=== PATIENT | female | born 1970 | race Caucasian/White ===

== ENCOUNTER 2017-01-05 13:14 | Emergency (ER) | payer SELFPAY ==
[2017-01-05 13:55] LABS: Basophils % (Auto) 0.6 % (0.0-1.8); Eosinophils % (Auto) 4.3 % (0.0-4.3); Hematocrit 39.1 % (30.3-42.9); Hemoglobin 12.8 gm/dl (10.1-14.3); Mean Corpuscular HGB Conc 33 % (30-34); Mean Corpuscular Hemoglobin 27 pg (28-32); Mean Corpuscular Volume 83 fl (79-97); Platelet Count 262 K/mm3 (140-440); Red Blood Count 4.69 M/mm3 (3.65-5.03); Red Cell Distribution Width 14.3 % (13.2-15.2); White Blood Count 5.8 K/mm3 (4.5-11.0)
[2017-01-05 14:33] LABS: Anion Gap 16 mmol/L; Blood Urea Nitrogen 10 mg/dL (7-17); Calcium 8.2 mg/dL (8.4-10.2); Carbon Dioxide 22 mmol/L (22-30); Chloride 103.1 mmol/L (98-107); Glucose 151 mg/dL (65-100); Potassium 3.6 mmol/L (3.6-5.0); Sodium 137 mmol/L (137-145)
--- NOTE | 2017-01-05 14:40 | XRay Report ---
Chest 2 views. History: Shortness of breath. Findings: The heart and pulmonary vessels are normal. The lungs are clear. There is no pleural fluid. Impression: Negative study.
[2017-01-05] MEDS ORDERED: ZITHROMAX PO ONE (16:11)
[2017-01-05] MEDS ORDERED: MOTRIN PO ONE (16:11)
--- NOTE | 2017-01-05 16:16 | Emergency Department Report ---
- General Chief Complaint: Upper Respiratory Infection Stated Complaint: FEVER/COUGH/PNEUMONIA/CHEST PAIN Time Seen by Provider: 01/05/17 15:53 Source: patient, family Mode of arrival: Ambulatory Limitations: Language Barrier - History of Present Illness Initial Comments: 46-year-old female past medical history none sent from primary care clinic to " rule out pneumonia". Patient states she has had 3 days of fever chills and coughing with body aches. Patient is awake alert and oriented 3 not in acute distress, states she feels some body aches. States she had slight discomfort when taking a deep breath. Denies any recent travel no recent surgeries no history of DVT or PE. Patient denies being a smoker. Patient speaking in full sentences no audible wheezing or stridor. MD Complaint: fever, cough Onset/Timin -: days(s) Severity: moderate Quality: burning Improves With: cough suppressant Associated Symptoms: fever, cough - Related Data Previous Rx's Medication Instructions Recorded Last Taken Type Azithromycin [Zithromax TAB] 250 mg PO QDAY #4 tablet 01/05/17 Unknown Rx Naproxen [Naprosyn TAB] 500 mg PO BID PRN #30 tablet 01/05/17 Unknown Rx guaiFENesin DM [Robitussin Dm] 10 ml PO Q6HR PRN #1 bottle 01/05/17 Unknown Rx Allergies Allergy/AdvReac Type Severity Reaction Status Date / Time No Known Allergies Allergy Unverified 01/05/17 13:38 ED Review of Systems ROS: Stated complaint: FEVER/COUGH/PNEUMONIA/CHEST PAIN Other details as noted in HPI Constitutional: denies: chills, fever Eyes: denies: eye pain, eye discharge, vision change ENT: denies: ear pain, throat pain Respiratory: cough. denies: shortness of breath, wheezing Cardiovascular: denies: chest pain, palpitations Endocrine: no symptoms reported Gastrointestinal: denies: abdominal pain, nausea, diarrhea Genitourinary: denies: urgency, dysuria, discharge Musculoskeletal: denies: back pain, joint swelling, arthralgia Skin: denies: rash, lesions Neurological: denies: headache, weakness, paresthesias Psychiatric: denies: anxiety, depression Hematological/Lymphatic: denies: easy bleeding, easy bruising ED Past Medical Hx - Past Medical History Previous Medical History?: No - Surgical History Additional Surgical History: - Social History Smoking Status: Never Smoker Substance Use Type: None - Medications Home Medications: Home Medications Medication Instructions Recorded Confirmed Last Taken Type Azithromycin [Zithromax TAB] 250 mg PO QDAY #4 tablet 01/05/17 Unknown Rx Naproxen [Naprosyn TAB] 500 mg PO BID PRN #30 tablet 01/05/17 Unknown Rx guaiFENesin DM [Robitussin Dm] 10 ml PO Q6HR PRN #1 bottle 01/05/17 Unknown Rx ED Physical Exam - General Limitations: Language Barrier General appearance: alert, in no apparent distress - Head Head exam: Present: atraumatic, normocephalic - Eye Eye exam: Present: normal appearance, PERRL, EOMI - ENT ENT exam: Present: mucous membranes moist - Neck Neck exam: Present: normal inspection - Respiratory Respiratory exam: Present: normal lung sounds bilaterally. Absent: respiratory distress - Cardiovascular Cardiovascular Exam: Present: regular rate, normal rhythm. Absent: systolic murmur, diastolic murmur, rubs, gallop - GI/Abdominal GI/Abdominal exam: Present: soft, normal bowel sounds - Extremities Exam Extremities exam: Present: normal inspection - Back Exam Back exam: Present: normal inspection - Neurological Exam Neurological exam: Present: alert, oriented X3 - Psychiatric Psychiatric exam: Present: normal affect, normal mood - Skin Skin exam: Present: warm, dry, intact, normal color. Absent: rash ED Course Vital Signs 01/05/17 01/05/17 01/05/17 13:28 15:33 16:22 Temperature 98.3 F 98.8 F Pulse Rate 124 H 84 Respiratory 20 18 18 Rate Blood Pressure 128/91 Blood Pressure 136/79 [Right] O2 Sat by Pulse 96 97 Oximetry ED Medical Decision Making - Lab Data Result diagrams: 01/05/17 13:41 01/05/17 13:41 - Medical Decision Making A/P: Acute bronchitis 1- chest x-ray within normal limits no pneumonia 2- troponin negative, BMP normal, d-dimer negative, Wells score for PE 0. EKG sinus tachy, pt no longer tachycardic on vital signs 3- case discussed with Dr. Judge 4- motrin prn, andree lowe 5- HEART score 0 Critical care attestation.: If time is entered above; I have spent that time in minutes in the direct care of this critically ill patient, excluding procedure time. ED Disposition Clinical Impression: Acute bronchitis Qualifiers: Bronchitis organism: unspecified organism Qualified Code(s): J20.9 - Acute bronchitis, unspecified Disposition: DISCHARGED TO HOME OR SELFCARE Is pt being admited?: No Does the pt Need Aspirin: No Condition: Stable Instructions: Acute Bronchitis (ED) Prescriptions: Azithromycin [Zithromax TAB] 250 mg PO QDAY #4 tablet guaiFENesin DM [Robitussin Dm] 10 ml PO Q6HR PRN #1 bottle PRN Reason: Cough Naproxen [Naprosyn TAB] 500 mg PO BID PRN #30 tablet PRN Reason: Cough Referrals: [facility] [Provider Group] - 3-5 Days [facility] [Outside] - 3-5 Days ANTHONY VALENCIA MD [Staff Physician] - 3-5 Days Forms: Accompanied Note, Work/School Release Form(ED) Time of Disposition: 18:40
[2017-01-05 16:52] LABS: Creatine Kinase 53 units/L (30-135)
[2017-01-05 18:17] VITALS: BP 136/81
== END 2017-01-05 18:55 | disposition home or self-care (01) ==
LOC: ED 13:14
DX: J20.9 Acute bronchitis, unspecified (principal)
CPT/HCPCS: 36415; 71020; 80048; 82550; 84484; 85025; 85379; 87040; 87400; 93005; 93010; 99284

== ENCOUNTER 2017-07-14 23:02 | Emergency (ER) | payer SELFPAY ==
[2017-07-15 00:09] LABS: Calcium 8.5 mg/dL (8.4-10.2); Chloride 101.2 mmol/L (98-107); Potassium 4.1 mmol/L (3.6-5.0)
[2017-07-15 00:56] LABS: Basophils % (Auto) 0.3 % (0.0-1.8); Eosinophils % (Auto) 1.3 % (0.0-4.3); Hematocrit 37.4 % (30.3-42.9); Mean Corpuscular HGB Conc 32 % (30-34); Mean Corpuscular Hemoglobin 27 pg (28-32); Mean Corpuscular Volume 85 fl (79-97); Platelet Count 267 K/mm3 (140-440); Red Blood Count 4.43 M/mm3 (3.65-5.03); Red Cell Distribution Width 13.6 % (13.2-15.2); White Blood Count 11.4 K/mm3 (4.5-11.0)
[2017-07-15 01:25] LABS: Bacteria,Urine 1+ /HPF (Negative); Mucus,Urine FEW /HPF
[2017-07-15 01:35] LABS: Bilirubin,Urine NEG (Negative); Blood,Urine LG (Negative); Ketones,Urine NEG (Negative); Leukocyte Esterase,Urine NEG (Negative); Nitrite,Urine NEG (Negative); Protein,Urine <15 mg/dL mg/dL (Negative); RBC,Urine > 182.0 /HPF (0.0-6.0); Urobilinogen,Urine < 2.0 mg/dL (<2.0)
[2017-07-15 06:44] VITALS: BP 122/73
[2017-07-15] MEDS ORDERED: NACL 0.9% 1000 ML 1,000 ML IV ONE (10:48)
[2017-07-15] MEDS ORDERED: TORADOL IV ONE (10:48)
--- NOTE | 2017-07-15 11:44 | Ultrasound Report ---
Renal sonogram: History: Hematuria, right flank pain. Findings: The right kidney 12.9 x 5.2 x 5.1 cm. Cortical thickness is 1.4 cm. Left kidney 11.7 x 5.7 x 5.2 cm the cortical thickness is 1.5 cm. There is mild dilatation noted of the intrarenal collecting system of right and left kidney which persists in postvoid images. Impression: Mild bilateral hydronephrosis.
[2017-07-15] MEDS ORDERED: ROCEPHIN/NS 1 GM/50 ML 1 GM/50 ML BAG IV ONE (12:00)
--- NOTE | 2017-07-15 15:08 | Emergency Department Report ---
ED General Adult HPI - General Chief complaint: Abdominal Pain Stated complaint: R SIDE BACK PAIN Time Seen by Provider: 07/15/17 10:46 Source: patient Mode of arrival: Ambulatory Limitations: No Limitations - History of Present Illness Initial comments: Patient complains of bilateral flank pain for the past several days. She is unaware of any problems urinating. She denies fever or chills. She has had some nausea this morning. Patient states that she believes she's had kidney stones before. She has not been on recent antibiotics for anything. She does not have a history of recurrent urinary tract infection. -: Gradual, days(s) Location: back Radiation: non-radiation Severity scale (0 -10): 3 Quality: aching Consistency: intermittent Improves with: none Worsens with: none Associated Symptoms: denies other symptoms, nausea/vomiting Treatments Prior to Arrival: none - Related Data Previous Rx's Medication Instructions Recorded Last Taken Type Azithromycin [Zithromax TAB] 250 mg PO QDAY #4 tablet 01/05/17 Unknown Rx Naproxen [Naprosyn TAB] 500 mg PO BID PRN #30 tablet 01/05/17 Unknown Rx guaiFENesin DM [Robitussin Dm] 10 ml PO Q6HR PRN #1 bottle 01/05/17 Unknown Rx Cefuroxime [Ceftin] 250 mg PO BID #20 tablet 07/15/17 Unknown Rx HYDROcodone/ACETAMINOPHEN [[place] 1 each PO Q6H PRN #7 tablet 07/15/17 Unknown Rx 5-325 Tablet] Allergies Allergy/AdvReac Type Severity Reaction Status Date / Time No Known Allergies Allergy Unverified 01/05/17 13:38 ED Review of Systems ROS: Stated complaint: R SIDE BACK PAIN Other details as noted in HPI Constitutional: denies: chills, fever Eyes: denies: eye pain, eye discharge, vision change ENT: denies: ear pain, throat pain Respiratory: denies: cough, shortness of breath, wheezing Cardiovascular: denies: chest pain, palpitations Endocrine: no symptoms reported Gastrointestinal: denies: abdominal pain, nausea, diarrhea Genitourinary: denies: urgency, dysuria, discharge Musculoskeletal: back pain. denies: joint swelling, arthralgia Skin: denies: rash, lesions Neurological: denies: headache, weakness, paresthesias Psychiatric: denies: anxiety, depression Hematological/Lymphatic: denies: easy bleeding, easy bruising ED Past Medical Hx - Past Medical History Previous Medical History?: No - Surgical History Additional Surgical History: - Social History Smoking Status: Never Smoker Substance Use Type: None - Medications Home Medications: Home Medications Medication Instructions Recorded Confirmed Last Taken Type Azithromycin [Zithromax TAB] 250 mg PO QDAY #4 tablet 01/05/17 Unknown Rx Naproxen [Naprosyn TAB] 500 mg PO BID PRN #30 tablet 01/05/17 Unknown Rx guaiFENesin DM [Robitussin Dm] 10 ml PO Q6HR PRN #1 bottle 01/05/17 Unknown Rx Cefuroxime [Ceftin] 250 mg PO BID #20 tablet 07/15/17 Unknown Rx HYDROcodone/ACETAMINOPHEN [[place] 1 each PO Q6H PRN #7 tablet 07/15/17 Unknown Rx 5-325 Tablet] ED Physical Exam - General Limitations: No Limitations General appearance: alert, in no apparent distress - Head Head exam: Present: atraumatic, normocephalic - Eye Eye exam: Present: normal appearance. Absent: scleral icterus - ENT ENT exam: Present: mucous membranes moist - Neck Neck exam: Present: normal inspection. Absent: tenderness, meningismus - Respiratory Respiratory exam: Present: normal lung sounds bilaterally. Absent: respiratory distress - Cardiovascular Cardiovascular Exam: Present: regular rate, normal rhythm. Absent: systolic murmur, diastolic murmur, rubs, gallop - GI/Abdominal GI/Abdominal exam: Present: soft, normal bowel sounds. Absent: distended, tenderness, guarding, rebound, rigid - Extremities Exam Extremities exam: Present: normal inspection - Back Exam Back exam: Present: normal inspection. Absent: CVA tenderness (R), CVA tenderness (L) - Neurological Exam Neurological exam: Present: alert, oriented X3, CN II-XII intact. Absent: motor sensory deficit - Psychiatric Psychiatric exam: Present: normal affect, normal mood - Skin Skin exam: Present: warm, dry, intact, normal color. Absent: rash ED Course Vital Signs 07/14/17 07/15/17 07/15/17 23:17 03:41 03:47 Temperature 98.7 F 98.3 F Pulse Rate 91 H 80 Respiratory 18 18 Rate Blood Pressure 137/94 135/82 O2 Sat by Pulse 100 99 100 Oximetry 07/15/17 07/15/17 07/15/17 04:00 04:15 04:30 Temperature Pulse Rate 74 74 72 Respiratory 19 17 14 Rate Blood Pressure 138/72 138/72 133/74 O2 Sat by Pulse 99 98 Oximetry 07/15/17 07/15/17 07/15/17 04:45 05:00 05:15 Temperature Pulse Rate 65 81 70 Respiratory 15 13 13 Rate Blood Pressure 135/82 136/86 136/86 O2 Sat by Pulse 98 98 Oximetry 07/15/17 07/15/17 07/15/17 05:30 05:45 06:00 Temperature Pulse Rate Respiratory 14 14 15 Rate Blood Pressure 120/78 136/86 118/67 O2 Sat by Pulse 97 98 96 Oximetry 07/15/17 07/15/17 06:15 06:30 Temperature Pulse Rate Respiratory 14 17 Rate Blood Pressure 118/67 122/73 O2 Sat by Pulse 99 97 Oximetry - Reevaluation(s) Reevaluation #1: Patient was given IV ceftriaxone and fluids. She was monitored. She did well. She did not complain of significant pain or have any nausea or vomiting. Her renal ultrasound showed slight Lyman but was bilateral and there was no signs of kidney stone present. I think this is probably consistent with early pyelonephritis. 07/15/17 15:05 ED Medical Decision Making - Lab Data Result diagrams: 07/14/17 23:26 07/14/17 23:26 Critical care attestation.: If time is entered above; I have spent that time in minutes in the direct care of this critically ill patient, excluding procedure time. ED Disposition Clinical Impression: Acute pyelonephritis Disposition: - TO HOME OR SELFCARE Is pt being admited?: No Does the pt Need Aspirin: No Condition: Stable Instructions: Abdominal Pain (ED), Urinary Tract Infection in Women (ED) Additional Instructions: It is essential that you follow-up on your urine culture by Tuesday. Return should you have increased pain vomiting fever or chills. He must get the prescription filled and begin the antibiotic by tomorrow morning. See follow- up referral. Prescriptions: Cefuroxime [Ceftin] 250 mg PO BID #20 tablet HYDROcodone/ACETAMINOPHEN [[place] 5-325 Tablet] 1 each PO Q6H PRN #7 tablet PRN Reason: Pain Referrals: PRIMARY CARE, [Primary Care Provider] - 3-5 Days [facility] [Provider Group] - 2-3 Days Time of Disposition: 15:07
== END 2017-07-15 16:23 | disposition home or self-care (01) ==
LOC: ED 23:02
DX: N12 Tubulo-interstitial nephritis, not specified as acute or chronic (principal)
CPT/HCPCS: 36415; 76770; 80048; 81001; 84703; 85025; 87086; 96365; 96375; 99284; J0696; J1885; J7030

== ENCOUNTER 2022-05-21 00:31 | Inpatient (IN) | payer SELFPAY ==
[2022-05-21] MEDS ORDERED: SODIUM CHLORIDE 0.9% 500 ML 500 ML IV ONE (00:43)
--- NOTE | 2022-05-21 01:39 | XRay Report ---
CHEST 1 VIEW INDICATION / CLINICAL INFORMATION: possible Sepsis. COMPARISON: None FINDINGS: SUPPORT DEVICES: None. HEART / MEDIASTINUM: No significant abnormality. LUNGS / PLEURA: Low lung volumes. Pulmonary vascular congestion without overt interstitial pulmonary edema. No evidence of pneumonia or significant pleural effusion. No pneumothorax. ADDITIONAL FINDINGS: No significant additional findings. IMPRESSION: 1. Low lung volumes with mild pulmonary vascular congestion. Signer Name: Debra Carbajal MD Signed: 05/21/2022 1:35 AM Workstation Name: [id number]
--- NOTE | 2022-05-21 02:20 | Emergency Department Report ---
ED General Adult HPI - General Chief complaint: Fever Stated complaint: SEPSIS Time Seen by Provider: 05/21/22 02:14 Source: EMS Mode of arrival: Stretcher Limitations: Language Barrier - History of Present Illness Initial comments: 51 yo F who came in with family member with bilateral flank pain worsen on the left that started last Tuesday about 7 days ago and progressively getting worse. Pt has been seen in other 2 ER with imaging including CT abd/pel and US that point to bilateral renal stone with left more than right. She was suppose to follow up with Urologist but she has not done than. Pt also reports fever of 102 degress intermittently since Tuesday about 4 days ago. She also mentioned nausea without emesis. Appetite is decrease as well. No other modifying or associated factors reported. Severity scale (0 -10): 7 - Related Data Previous Rx's Medication Instructions Recorded Last Taken Type Azithromycin [Zithromax TAB] 250 mg PO QDAY #4 tablet 01/05/17 Unknown Rx Naproxen [Naprosyn TAB] 500 mg PO BID PRN #30 tablet 01/05/17 Unknown Rx guaiFENesin DM [Robitussin Dm] 10 ml PO Q6HR PRN #1 bottle 01/05/17 Unknown Rx HYDROcodone/ACETAMINOPHEN [[place] 1 each PO Q6H PRN #7 tablet 07/15/17 Unknown Rx 5-325 Tablet] cefUROXime [Ceftin] 250 mg PO BID #20 tablet 07/15/17 Unknown Rx Ibuprofen [Motrin] 600 mg PO Q8H PRN #30 tablet 03/15/18 Unknown Rx levoFLOXacin [Levaquin] 750 mg PO QDAY #4 tablet 03/15/18 Unknown Rx Allergies Allergy/AdvReac Type Severity Reaction Status Date / Time No Known Allergies Allergy Verified 05/21/22 02:17 ED Review of Systems ROS: Stated complaint: SEPSIS Other details as noted in HPI Comment: All other systems reviewed and negative Constitutional: chills, fever Gastrointestinal: abdominal pain, nausea. denies: vomiting Musculoskeletal: back pain (bilateral flank ) ED Past Medical Hx - Past Medical History Previous Medical History?: Yes Hx Kidney Stones: Yes - Surgical History Past Surgical History?: Yes Additional Surgical History: - Social History Smoking Status: Unknown if ever smoked - Medications Home Medications: Home Medications Medication Instructions Recorded Confirmed Last Taken Type Azithromycin [Zithromax TAB] 250 mg PO QDAY #4 tablet 01/05/17 Unknown Rx Naproxen [Naprosyn TAB] 500 mg PO BID PRN #30 tablet 01/05/17 Unknown Rx guaiFENesin DM [Robitussin Dm] 10 ml PO Q6HR PRN #1 bottle 01/05/17 Unknown Rx HYDROcodone/ACETAMINOPHEN [[place] 1 each PO Q6H PRN #7 tablet 07/15/17 Unknown Rx 5-325 Tablet] cefUROXime [Ceftin] 250 mg PO BID #20 tablet 07/15/17 Unknown Rx Ibuprofen [Motrin] 600 mg PO Q8H PRN #30 tablet 03/15/18 Unknown Rx levoFLOXacin [Levaquin] 750 mg PO QDAY #4 tablet 03/15/18 Unknown Rx ED Physical Exam - General Limitations: Language Barrier General appearance: in distress (due to left and right flank pain with fever ) - Head Head exam: Present: atraumatic, normal inspection - Eye Eye exam: Present: normal appearance Pupils: Present: normal accommodation - ENT ENT exam: Present: normal exam, normal orophraynx, mucous membranes dry - Neck Neck exam: Absent: tenderness - Respiratory Respiratory exam: Present: normal lung sounds bilaterally. Absent: respiratory distress, accessory muscle use - Cardiovascular Cardiovascular Exam: Present: regular rate, normal rhythm, normal heart sounds - GI/Abdominal GI/Abdominal exam: Present: soft, normal bowel sounds. Absent: distended, tenderness - Extremities Exam Extremities exam: Present: normal inspection, normal capillary refill. Absent: tenderness, pedal edema - Back Exam Back exam: Present: CVA tenderness (L). Absent: tenderness, CVA tenderness (R) - Neurological Exam Neurological exam: Present: alert, oriented X3 - Psychiatric Psychiatric exam: Present: normal affect, normal mood - Skin Skin exam: Present: warm, normal color ED Course Vital Signs 05/21/22 05/21/22 05/21/22 00:32 01:10 01:16 Temperature 104 F H Pulse Rate 139 H 128 H Respiratory 18 23 24 Rate Blood Pressure 158/88 [Right] O2 Sat by Pulse 98 96 97 Oximetry 05/21/22 05/21/22 01:21 01:24 Temperature 101.3 F H Pulse Rate 125 H Respiratory Rate Blood Pressure 140/71 [Right] O2 Sat by Pulse 100 100 Oximetry ED Medical Decision Making - Lab Data Result diagrams: 05/21/22 01:19 05/21/22 01:19 - EKG Data -: EKG Interpreted by Me EKG shows normal: sinus rhythm Rate: tachycardia - EKG Data 05/21/22 04:45 Noted with initial sinus tachycardia at the rate of 127 bpm and this otherwise normal ECG. - Radiology Data FINDINGS: CT abdomen with contrast demonstrates grossly normal appearance of the liver, spleen, pancreas, gallbladder, and adrenal glands. Abdominal aorta is is normal. There is a 2.9 cm calculus in the proximal left ureter at the UPJ causing sev ere left hydronephrosis. There is inflammatory change surrounding the right proximal ureter and within the right perinephric space. There is decreased attenuation in the upper pole of the right kidney most likely representing pyelonephritis. There are a few punctate calculi within the right kidney but the right kidney is otherwise unremarkable. CT pelvis with contrast does not demonstrate mass, free fluid, or focal inflammatory process. A normal appendix is present in the right lower quadrant. Visualized lung bases are unremarkable. No acute osseous abnormality noted. IMPRESSION: 1. Severe left hydronephrosis caused by a 2.9 cm calculus in the proximal left ureter at the UPJ is noted. Decreased attenuation of the renal parenchyma in the left upper pole is most likely secondary to pyelonephritis. 2. Right nephrolithiasis without obstruction. - Medical Decision Making here with bilateral flank pain associated with fever -- and recent diagnosis of bilateral renal stone-- this raise concern for pyelonephritis with hydronephrosi s -- will go ahead and start ivf ns 1L bolus, given Toradol for pain and fever and order routine labs and repeat CT abd/pel for confirmation-- Noted elevated lactic acid -- with tachycardia and possible pyelonephritis -- raise concern for sepsis -- will start aggressive ivf hydration and antibiotics Pt called for admission so Dr Sarmiento consulted who accept pt for further evaluation and treatment Critical care attestation.: If time is entered above; I have spent that time in minutes in the direct care of this critically ill patient, excluding procedure time. ED Disposition Clinical Impression: Bilateral kidney stones, Pyelonephritis Fever Qualifiers: Fever type: unspecified Qualified Code(s): R50.9 - Fever, unspecified Sepsis Qualifiers: Sepsis type: sepsis due to unspecified organism Sepsis acute organ dysfunction status: unspecified Qualified Code(s): A41.9 - Sepsis, unspecified organism Disposition: ADMITTED INPATIENT Is pt being admited?: Yes Does the pt Need Aspirin: No Condition: Stable Referrals: PRIMARY CARE, [Primary Care Provider] - 3-5 Days Time of Disposition: 05:04
[2022-05-21 02:24] LABS: Hematocrit 32.8 % (30.3-42.9); Hemoglobin 10.6 gm/dl (10.1-14.3); Mean Corpuscular HGB Conc 33 % (30-34); Mean Corpuscular Volume 82 fl (79-97); Platelet Count 286 K/mm3 (140-440); Red Cell Distribution Width 14.2 % (13.2-15.2)
[2022-05-21 02:45] LABS: Albumin 3.5 g/dL (3.9-5); Calcium 8.3 mg/dL (8.4-10.2)
[2022-05-21] MEDS ORDERED: KETOROLAC 30 MG/1 ML INJ IV ONE (03:01)
[2022-05-21 03:11] LABS: Basophils % (Manual) 0 % (0.0-1.8); Eosinophils % (Manual) 0 % (0.0-4.3); Total Cells Counted 100
[2022-05-21 03:12] LABS: Hypochromasia Few; Platelet Estimate Consistent w Auto
[2022-05-21] MEDS ORDERED: PIPERACIL/TAZOBACTA 4.5/NS 100 4.5 GM/100 ML VIAL IV ONE (03:41)
[2022-05-21] MEDS ORDERED: SODIUM CHLORIDE 0.9% 1000 ML 1,000 ML IV ONE (03:41)
[2022-05-21] MEDS ORDERED: VANCOMYCIN/NS 1 GM/250 ML 1 GM/250 ML BAG IV ONE (03:41)
--- NOTE | 2022-05-21 04:02 | Cat Scan Report ---
CT abdomen pelvis w con INDICATION / CLINICAL INFORMATION: kIDNEY sTONES. TECHNIQUE: Axial CT imaging of abdomen and pelvis was obtained with 100 mL Omni 300 IV contrast. Coronal and sag ittal reformatted imaging obtained and reviewed. All CT scans at this location are performed using C T dose reduction for ALARA by means of automated exposure control. COMPARISON: Prior CT abdomen/pelvis 03/15/2018 FINDINGS: CT abdomen with contrast demonstrates grossly normal appearance of the liver, spleen, pancreas, gallb ladder, and adrenal glands. Abdominal aorta is is normal. There is a 2.9 cm calculus in the proximal left ureter at the UPJ causing severe left hydronephrosis. There is inflammatory change surrounding the right proximal ureter and within the right perinephric space. There is decreased attenuation in the upper pole of the right kidney most likely representing pyelonephritis. There are a few punctate calculi within the right kidney but the right kidney is othe rwise unremarkable. CT pelvis with contrast does not demonstrate mass, free fluid, or focal inflammatory process. A josefa l appendix is present in the right lower quadrant. Visualized lung bases are unremarkable. No acute osseous abnormality noted. IMPRESSION: 1. Severe left hydronephrosis caused by a 2.9 cm calculus in the proximal left ureter at the UPJ is n oted. Decreased attenuation of the renal parenchyma in the left upper pole is most likely secondary t o pyelonephritis. 2. Right nephrolithiasis without obstruction. Signer Name: Debra Carbajal MD Signed: 05/21/2022 3:57 AM Workstation Name: [id number]
[2022-05-21] MEDS ORDERED: ONDANSETRON 4 MG/2 ML INJ IV PRN ×2 (05:04→14:23)
[2022-05-21] MEDS ORDERED: MORPHINE 2 MG/1 ML INJ IV PRN (05:04)
[2022-05-21] MEDS ORDERED: ACETAMINOPHEN 325 MG TAB PO PRN (05:04)
--- NOTE | 2022-05-21 10:33 | Electrocardiograph Report ---
[facility] Test Date: 2022-05-21 Test Time: 01:15:23 Pat Name: SURESH CARDONA Department: Room: [place] [address] Gender: F [employer]: NURSE : 1970 Requested By: GILBERTO MOONEY Order Number: [id number] Reading MD: Jase Carpio Measurements Intervals [place] Rate: 127 P: 46 [place]: 141 QRS: 81 QRSD: 87 T: 24 QT: 319 QTc: 464 Interpretive Statements Sinus tachycardia No previous ECG available for comparison Electronically Signed On 05-21-2022 10:33:54 EDT by Jase Carpio
[2022-05-21] MEDS ORDERED: oxyCODONE /ACETAMINOPHEN 5-325MG TAB PO PRN (14:23)
[2022-05-21] MEDS ORDERED: HYDROmorphone 0.5 MG/0.5 ML INJ IV PRN (14:23)
--- NOTE | 2022-05-21 14:23 | History and Physical Report ---
History of Present Illness Date of examination: 05/21/22 Date of admission: 05/21/22 05:04 Chief complaint: Bilateral flank pain for 1 day History of present illness: 51-year-old Cambodian-speaking female comes in for bilateral flank pain for the last 7 days and getting worse. Also low-grade fever. Dysuria present. Flank pain is about 8 on a scale of 1-10 and intermittent in nature. Intermittent fever. Nausea present. But no vomiting. No prior history of urinary tract infections. No significant past medical history except for kidney stones. No exacerbating or relieving factors. Pain is intermittent in nature. Sharp in nature. - Past Medical History Previous Medical History?: Yes Hx Kidney Stones: Yes - Surgical History Past Surgical History?: Yes Additional Surgical History: - Social History Smoking Status: Unknown if ever smoked - Medications Home Medications: Home Medications Medication Instructions Recorded Confirmed Last Taken Type Azithromycin [Zithromax TAB] 250 mg PO QDAY #4 tablet 01/05/17 Unknown Rx Naproxen [Naprosyn TAB] 500 mg PO BID PRN #30 tablet 01/05/17 Unknown Rx guaiFENesin DM [Robitussin Dm] 10 ml PO Q6HR PRN #1 bottle 01/05/17 Unknown Rx HYDROcodone/ACETAMINOPHEN [[place] 1 each PO Q6H PRN #7 tablet 07/15/17 Unknown Rx 5-325 Tablet] cefUROXime [Ceftin] 250 mg PO BID #20 tablet 07/15/17 Unknown Rx Ibuprofen [Motrin] 600 mg PO Q8H PRN #30 tablet 03/15/18 Unknown Rx levoFLOXacin [Levaquin] 750 mg PO QDAY #4 tablet 03/15/18 Unknown Rx Review of Systems ROS: Stated complaint: SEPSIS Other details as noted in HPI Comment: All other systems reviewed and negative Constitutional: chills, fever Gastrointestinal: abdominal pain, nausea. denies: vomiting Musculoskeletal: back pain (bilateral flank ) Medications and Allergies Allergies Allergy/AdvReac Type Severity Reaction Status Date / Time No Known Allergies Allergy Verified 05/21/22 02:17 Home Medications Medication Instructions Recorded Confirmed Last Taken Type Azithromycin [Zithromax TAB] 250 mg PO QDAY #4 tablet 01/05/17 Unknown Rx Naproxen [Naprosyn TAB] 500 mg PO BID PRN #30 tablet 01/05/17 Unknown Rx guaiFENesin DM [Robitussin Dm] 10 ml PO Q6HR PRN #1 bottle 01/05/17 Unknown Rx HYDROcodone/ACETAMINOPHEN [[place] 1 each PO Q6H PRN #7 tablet 07/15/17 Unknown Rx 5-325 Tablet] cefUROXime [Ceftin] 250 mg PO BID #20 tablet 07/15/17 Unknown Rx Ibuprofen [Motrin] 600 mg PO Q8H PRN #30 tablet 03/15/18 Unknown Rx levoFLOXacin [Levaquin] 750 mg PO QDAY #4 tablet 03/15/18 Unknown Rx Active Meds: Active Medications Acetaminophen (Acetaminophen 325 Mg Tab) 650 mg PO Q4H PRN PRN Reason: Pain MILD(1-3)/Fever >100.5/MENDOZA Morphine Sulfate (Morphine 2 Mg/1 Ml Inj) 2 mg IV Q4H PRN PRN Reason: Pain, Moderate (4-6) Ondansetron HCl (Ondansetron 4 Mg/2 Ml Inj) 4 mg IV Q8H PRN PRN Reason: Nausea And Vomiting Sodium Chloride (Sodium Chloride 0.9% 10 Ml Flush Syringe) 10 ml IV BID LUIS Sodium Chloride (Sodium Chloride 0.9% 10 Ml Flush Syringe) 10 ml IV PRN PRN PRN Reason: LINE FLUSH Exam - Constitutional Vitals: Temp Pulse Resp BP Pulse Ox 101.3 F H 100 H 13 98/63 96 05/21/22 01:24 05/21/22 08:16 05/21/22 08:16 05/21/22 08:16 05/21/22 08:16 General appearance: Present: mild distress, well-nourished - EENT Eyes: Present: PERRL ENT: hearing intact, clear oral mucosa - Neck Neck: Present: supple, normal ROM - Respiratory Respiratory effort: normal Respiratory: bilateral: CTA - Cardiovascular Heart rate: 78 Rhythm: regular Heart Sounds: Present: S1 & S2. Absent: rub, click - Extremities Extremities: no ischemia, pulses intact, pulses symmetrical, No edema Peripheral Pulses: within normal limits - Abdominal General gastrointestinal: Present: soft, non-tender, non-distended, normal bowel sounds Localized gastrointestinal: tender: diffuse (Bilateral flank pain/tenderness) Female genitourinary: Present: normal - Rectal Rectal Exam: deferred - Integumentary Integumentary: Present: clear, warm, dry - Musculoskeletal Musculoskeletal: gait normal, strength equal bilaterally - Psychiatric Psychiatric: appropriate mood/affect, intact judgment & insight - Neurologic Neurologic: CNII-XII intact, moves all extremities - Allied Health Allied health notes reviewed: nursing, case management Results - Labs CBC & Chem 7: 05/22/22 05:30 05/22/22 05:30 Labs: Laboratory Last Values WBC 9.5 K/mm3 (4.5-11.0) 05/21/22 01:19 RBC 4.00 M/mm3 (3.65-5.03) 05/21/22 01:19 Hgb 10.6 gm/dl (10.1-14.3) 05/21/22 01:19 Hct 32.8 % (30.3-42.9) 05/21/22 01:19 MCV 82 fl (79-97) 05/21/22 01:19 MCH 27 pg (28-32) L 05/21/22 01:19 MCHC 33 % (30-34) 05/21/22 01:19 RDW 14.2 % (13.2-15.2) 05/21/22 01:19 Plt Count 286 K/mm3 (140-440) 05/21/22 01:19 Add Manual Diff Complete 05/21/22 01:19 Total Counted 100 05/21/22 01:19 Seg Neutrophils % Hearing Aid Consultant 05/21/22 01:19 Seg Neuts % (Manual) 89.0 % (40.0-70.0) H 05/21/22 01:19 Band Neutrophils % 0 % 05/21/22 01:19 Lymphocytes % (Manual) 8.0 % (13.4-35.0) L 05/21/22 01:19 Reactive Lymphs % (Man) 0 % 05/21/22 01:19 Monocytes % (Manual) 3.0 % (0.0-7.3) 05/21/22 01:19 Eosinophils % (Manual) 0 % (0.0-4.3) 05/21/22 01:19 Basophils % (Manual) 0 % (0.0-1.8) 05/21/22 01:19 Metamyelocytes % 0 % 05/21/22 01:19 Myelocytes % 0 % 05/21/22 01:19 Promyelocytes % 0 % 05/21/22 01:19 Blast Cells % 0 % 05/21/22 01:19 Nucleated RBC % Not Reportable 05/21/22 01:19 Seg Neutrophils # Man 8.5 K/mm3 (1.8-7.7) H 05/21/22 01:19 Band Neutrophils # 0.0 K/mm3 05/21/22 01:19 Lymphocytes # (Manual) 0.8 K/mm3 (1.2-5.4) L 05/21/22 01:19 Abs React Lymphs (Man) 0.0 K/mm3 05/21/22 01:19 Monocytes # (Manual) 0.3 K/mm3 (0.0-0.8) 05/21/22 01:19 Eosinophils # (Manual) 0.0 K/mm3 (0.0-0.4) 05/21/22 01:19 Basophils # (Manual) 0.0 K/mm3 (0.0-0.1) 05/21/22 01:19 Metamyelocytes # 0.0 K/mm3 05/21/22 01:19 Myelocytes # 0.0 K/mm3 05/21/22 01:19 Promyelocytes # 0.0 K/mm3 05/21/22 01:19 Blast Cells # 0.0 K/mm3 05/21/22 01:19 WBC Morphology Not Reportable 05/21/22 01:19 Hypersegmented Neuts Not Reportable 05/21/22 01:19 Hyposegmented Neuts Not Reportable 05/21/22 01:19 Hypogranular Neuts Not Reportable 05/21/22 01:19 Smudge Cells Not Reportable 05/21/22 01:19 Toxic Granulation Not Reportable 05/21/22 01:19 Toxic Vacuolation Not Reportable 05/21/22 01:19 Dohle Bodies Not Reportable 05/21/22 01:19 Pelger-Huet Anomaly Not Reportable 05/21/22 01:19 Radha Rods Not Reportable 05/21/22 01:19 Platelet Estimate Consistent w auto 05/21/22 01:19 Clumped Platelets Not Reportable 05/21/22 01:19 Plt Clumps, EDTA Not Reportable 05/21/22 01:19 Large Platelets Not Reportable 05/21/22 01:19 Giant Platelets Not Reportable 05/21/22 01:19 Platelet Satelliting Not Reportable 05/21/22 01:19 Plt Morphology Comment Not Reportable 05/21/22 01:19 RBC Morphology Not Reportable 05/21/22 01:19 Dimorphic RBCs Not Reportable 05/21/22 01:19 Polychromasia Not Reportable 05/21/22 01:19 Hypochromasia Few 05/21/22 01:19 Poikilocytosis Not Reportable 05/21/22 01:19 Anisocytosis Not Reportable 05/21/22 01:19 Microcytosis Not Reportable 05/21/22 01:19 Macrocytosis Not Reportable 05/21/22 01:19 Spherocytes Not Reportable 05/21/22 01:19 Pappenheimer Bodies Not Reportable 05/21/22 01:19 Sickle Cells Not Reportable 05/21/22 01:19 Target Cells Not Reportable 05/21/22 01:19 Tear Drop Cells Not Reportable 05/21/22 01:19 Ovalocytes Not Reportable 05/21/22 01:19 Helmet Cells Not Reportable 05/21/22 01:19 [place] Bodies Not Reportable 05/21/22 01:19 [place] Rings Not Reportable 05/21/22 01:19 [place] Cells Not Reportable 05/21/22 01:19 Bite Cells Not Reportable 05/21/22 01:19 Crenated Cell Not Reportable 05/21/22 01:19 Elliptocytes Not Reportable 05/21/22 01:19 Acanthocytes (Spur) Not Reportable 05/21/22 01:19 Rouleaux Not Reportable 05/21/22 01:19 Hemoglobin C Crystals Not Reportable 05/21/22 01:19 Schistocytes Not Reportable 05/21/22 01:19 Malaria parasites Not Reportable 05/21/22 01:19 Lexa Bodies Not Reportable 05/21/22 01:19 Hem Pathologist Commnt No 05/21/22 01:19 PT 14.6 Sec. (12.2-14.9) 05/21/22 01:19 INR 1.00 (0.87-1.13) 05/21/22 01:19 VBG pH 7.383 (7.320-7.420) 05/21/22 01:19 Sodium 140 mmol/L (137-145) 05/21/22 01:19 Potassium 3.3 mmol/L (3.6-5.0) L 05/21/22 01:19 Chloride 106.9 mmol/L (98-107) 05/21/22 01:19 Carbon Dioxide 19 mmol/L (22-30) L 05/21/22 01:19 Anion Gap 17 mmol/L 05/21/22 01:19 BUN 11 mg/dL (7-17) 05/21/22 01:19 Creatinine 1.0 mg/dL (0.6-1.2) 05/21/22 01:19 Estimated GFR 59 ml/min 05/21/22 01:19 BUN/Creatinine Ratio 11 % 05/21/22 01:19 Glucose 123 mg/dL (65-100) H 05/21/22 01:19 Lactic Acid 0.90 mmol/L (0.7-2.0) 05/21/22 05:43 Calcium 8.3 mg/dL (8.4-10.2) L 05/21/22 01:19 Total Bilirubin 0.50 mg/dL (0.1-1.2) 05/21/22 01:19 AST 29 units/L (5-40) 05/21/22 01:19 ALT 35 units/L (7-56) 05/21/22 01:19 Alkaline Phosphatase 200 units/L (35-129) H 05/21/22 01:19 Total Protein 6.6 g/dL (6.3-8.2) 05/21/22 01:19 Albumin 3.5 g/dL (3.9-5) L 05/21/22 01:19 Albumin/Globulin Ratio 1.1 % 05/21/22 01:19 Short CBC 05/22/22 Range/Units 05:30 WBC 13.0 H (4.5-11.0) K/mm3 Hgb 9.8 L (10.1-14.3) gm/dl Hct 30.8 (30.3-42.9) % Plt Count 242 (140-440) K/mm3 BMP 05/22/22 05:30 Sodium 139 Potassium 3.7 Chloride 105.6 Carbon Dioxide 22 BUN 13 Creatinine 0.9 Glucose 104 H Calcium 8.1 L Liver Function 05/22/22 Range/Units 05:30 Total Bilirubin 0.20 (0.1-1.2) mg/dL AST 13 (5-40) units/L ALT 23 (7-56) units/L Alkaline Phosphatase 162 H (35-129) units/L Albumin 3.0 L (3.9-5) g/dL Microbiology: Microbiology 05/21/22 02:01 Peripheral/Venous Blood Culture - Preliminary Culture in Progress 05/21/22 01:19 Peripheral/Venous Blood Culture - Preliminary Culture in Progress - Imaging and Cardiology CT scan - abdomen: report reviewed Imaging and Cardiology: Chest x-ray Low lung volumes and mild pulmonary vascular congestion Abdomen/pelvis CT Severe left hydronephrosis caused by 2.9 cm calculus in the proximal left ureter at UPJ junction was noted decreased attenuation of the renal parenchyma in the left upper pole this most likely secondary to pyelonephritis. Right nephrolithiasis without obstruction. Assessment and Plan Advance Directives: Yes (Full code) VTE prophylaxis?: Chemical Plan of care discussed with patient/family: Yes - Patient Problems (1) SIRS (systemic inflammatory response syndrome) Current Visit: Yes Status: Acute Plan to address problem: High white count and elevated lactic acid IV antibiotics initiated (2) Acute pyelonephritis Current Visit: Yes Status: Acute Plan to address problem: IV ceftriaxone pending urine cultures Also a IV fluids (3) Renal calculus, left Current Visit: Yes Status: Chronic Plan to address problem: 2.9 cm causing left hydronephrosis May need surgical intervention Urology consult requested (4) Hydronephrosis, left Current Visit: Yes Status: Acute Plan to address problem: Urology consult requested (5) Hypokalemia Current Visit: Yes Status: Acute Plan to address problem: Supplemented (6) Malnutrition Current Visit: Yes Status: Chronic Qualifiers: Malnutrition type: protein-calorie malnutrition Protein-calorie malnutrition severity: mild Qualified Code(s): E44.1 - Mild protein-calorie malnutrition Plan to address problem: Dietary supplements initiated (7) DVT prophylaxis Current Visit: Yes Status: Acute Plan to address problem: On heparin and GI prophylaxis (8) Advance care planning Current Visit: Yes Status: Acute Plan to address problem: Disease education conducted follow-up care plan discussed, diagnosis discussed in problem prognosis discussed. Patient is full code. Patient acknowledges understanding of care plan. 30 minutes.
[2022-05-21] MEDS: cefTRIAXone/NS 2 GM/100 ML 2 GM/100 ML BAG IV SCH (19:00)
[2022-05-21] MEDS: FAMOTIDINE 20 MG TAB PO SCH ×2 (19:00→23:04)
[2022-05-21] MEDS: ACETAMINOPHEN 325 MG TAB PO PRN (23:04)
[2022-05-22] MEDS: SODIUM CHLORIDE 0.9% 1000 ML 1,000 ML IV SCH (02:38)
[2022-05-22 05:34] LABS: Basophils # (Auto) 0.1 K/mm3 (0.0-0.1); Basophils % (Auto) 0.4 % (0.0-1.8); Eosinophils # (Auto) 0.1 K/mm3 (0.0-0.4); Hematocrit 30.8 % (30.3-42.9); Hemoglobin 9.8 gm/dl (10.1-14.3); Lymphocytes # (Auto) 1.6 K/mm3 (1.2-5.4); Lymphocytes % (Auto) 12.7 % (13.4-35.0); Mean Corpuscular HGB Conc 32 % (30-34); Mean Corpuscular Volume 82 fl (79-97); Monocytes # (Auto) 0.8 K/mm3 (0.0-0.8); Monocytes % (Auto) 6.3 % (0.0-7.3); Platelet Count 242 K/mm3 (140-440); Red Blood Count 3.76 M/mm3 (3.65-5.03); Red Cell Distribution Width 13.9 % (13.2-15.2)
[2022-05-22 06:16] LABS: Alanine Aminotransferase 23 units/L (7-56); BUN/Creatinine Ratio 14; Blood Urea Nitrogen 13 mg/dL (7-17); Calcium 8.1 mg/dL (8.4-10.2); Hemolysis Index 7
--- NOTE | 2022-05-22 07:38 | Progress Note ---
Assessment and Plan Assessment and plan: Advance Directives: Yes (Full code) VTE prophylaxis?: Chemical Plan of care discussed with patient/family: Yes - Patient Problems -- SIRS (systemic inflammatory response syndrome) High white count and elevated lactic acid IV antibiotics initiated -- Acute pyelonephritis IV ceftriaxone pending urine cultures Also a IV fluids -- Renal calculus, left 2.9 cm causing left hydronephrosis May need surgical intervention Urology consult requested --Hydronephrosis, left Urology consult requested Scheduled for procedure today -- Hypokalemia Supplemented Closely monitor electrolytes --Moderate malnutrition Dietary supplements initiated -- DVT prophylaxis On heparin and GI prophylaxis -- Advance care planning Disease education conducted follow-up care plan discussed, diagnosis discussed in problem prognosis discussed. Patient is full code. Patient acknowledges understanding of care plan. 30 minutes. History Interval history: I have seen and examined the patient at the bedside Patient's chart and medications reviewed Urologist evaluation recommendation noted and appreciated Patient is n.p.o. scheduled for urology procedure Hospitalist Physical - Constitutional Vitals: Temp Pulse Resp BP Pulse Ox 99.8 F H 121 H 16 138/56 91 05/21/22 23:58 05/21/22 23:58 05/21/22 23:58 05/22/22 03:20 05/22/22 03:20 General appearance: Present: mild distress, well-nourished - EENT Eyes: Present: PERRL, EOM intact - Neck Neck: Present: supple, normal ROM - Respiratory Respiratory effort: normal Respiratory: bilateral: diminished, negative: rales, rhonchi, wheezing - Cardiovascular Rhythm: regular Heart Sounds: Present: S1 & S2 - Extremities Extremities: no ischemia, No edema - Abdominal General gastrointestinal: soft, non-tender, non-distended, normal bowel sounds - Integumentary Integumentary: Present: clear, warm - Psychiatric Psychiatric: appropriate mood/affect, cooperative - Neurologic Neurologic: CNII-XII intact, moves all extremities Results - Labs CBC & Chem 7: 05/22/22 05:30 05/22/22 05:30 Labs: Laboratory Last Values WBC 13.0 K/mm3 (4.5-11.0) H 05/22/22 05:30 RBC 3.76 M/mm3 (3.65-5.03) 05/22/22 05:30 Hgb 9.8 gm/dl (10.1-14.3) L 05/22/22 05:30 Hct 30.8 % (30.3-42.9) 05/22/22 05:30 MCV 82 fl (79-97) 05/22/22 05:30 MCH 26 pg (28-32) L 05/22/22 05:30 MCHC 32 % (30-34) 05/22/22 05:30 RDW 13.9 % (13.2-15.2) 05/22/22 05:30 Plt Count 242 K/mm3 (140-440) 05/22/22 05:30 Lymph % (Auto) 12.7 % (13.4-35.0) L 05/22/22 05:30 [place] % (Auto) 6.3 % (0.0-7.3) 05/22/22 05:30 Eos % (Auto) 1.0 % (0.0-4.3) 05/22/22 05:30 Baso % (Auto) 0.4 % (0.0-1.8) 05/22/22 05:30 Lymph # (Auto) 1.6 K/mm3 (1.2-5.4) 05/22/22 05:30 [place] # (Auto) 0.8 K/mm3 (0.0-0.8) 05/22/22 05:30 Eos # (Auto) 0.1 K/mm3 (0.0-0.4) 05/22/22 05:30 Baso # (Auto) 0.1 K/mm3 (0.0-0.1) 05/22/22 05:30 Add Manual Diff Complete 05/21/22 01:19 Total Counted 100 05/21/22 01:19 Seg Neutrophils % 79.6 % (40.0-70.0) H 05/22/22 05:30 Seg Neuts % (Manual) 89.0 % (40.0-70.0) H 05/21/22 01:19 Band Neutrophils % 0 % 05/21/22 01:19 Lymphocytes % (Manual) 8.0 % (13.4-35.0) L 05/21/22 01:19 Reactive Lymphs % (Man) 0 % 05/21/22 01:19 Monocytes % (Manual) 3.0 % (0.0-7.3) 05/21/22 01:19 Eosinophils % (Manual) 0 % (0.0-4.3) 05/21/22 01:19 Basophils % (Manual) 0 % (0.0-1.8) 05/21/22 01:19 Metamyelocytes % 0 % 05/21/22 01:19 Myelocytes % 0 % 05/21/22 01:19 Promyelocytes % 0 % 05/21/22 01:19 Blast Cells % 0 % 05/21/22 01:19 Nucleated RBC % Not Reportable 05/21/22 01:19 Seg Neutrophils # 10.3 K/mm3 (1.8-7.7) H 05/22/22 05:30 Seg Neutrophils # Man 8.5 K/mm3 (1.8-7.7) H 05/21/22 01:19 Band Neutrophils # 0.0 K/mm3 05/21/22 01:19 Lymphocytes # (Manual) 0.8 K/mm3 (1.2-5.4) L 05/21/22 01:19 Abs React Lymphs (Man) 0.0 K/mm3 05/21/22 01:19 Monocytes # (Manual) 0.3 K/mm3 (0.0-0.8) 05/21/22 01:19 Eosinophils # (Manual) 0.0 K/mm3 (0.0-0.4) 05/21/22 01:19 Basophils # (Manual) 0.0 K/mm3 (0.0-0.1) 05/21/22 01:19 Metamyelocytes # 0.0 K/mm3 05/21/22 01:19 Myelocytes # 0.0 K/mm3 05/21/22 01:19 Promyelocytes # 0.0 K/mm3 05/21/22 01:19 Blast Cells # 0.0 K/mm3 05/21/22 01:19 WBC Morphology Not Reportable 05/21/22 01:19 Hypersegmented Neuts Not Reportable 05/21/22 01:19 Hyposegmented Neuts Not Reportable 05/21/22 01:19 Hypogranular Neuts Not Reportable 05/21/22 01:19 Smudge Cells Not Reportable 05/21/22 01:19 Toxic Granulation Not Reportable 05/21/22 01:19 Toxic Vacuolation Not Reportable 05/21/22 01:19 Dohle Bodies Not Reportable 05/21/22 01:19 Pelger-Huet Anomaly Not Reportable 05/21/22 01:19 Radha Rods Not Reportable 05/21/22 01:19 Platelet Estimate Consistent w auto 05/21/22 01:19 Clumped Platelets Not Reportable 05/21/22 01:19 Plt Clumps, EDTA Not Reportable 05/21/22 01:19 Large Platelets Not Reportable 05/21/22 01:19 Giant Platelets Not Reportable 05/21/22 01:19 Platelet Satelliting Not Reportable 05/21/22 01:19 Plt Morphology Comment Not Reportable 05/21/22 01:19 RBC Morphology Not Reportable 05/21/22 01:19 Dimorphic RBCs Not Reportable 05/21/22 01:19 Polychromasia Not Reportable 05/21/22 01:19 Hypochromasia Few 05/21/22 01:19 Poikilocytosis Not Reportable 05/21/22 01:19 Anisocytosis Not Reportable 05/21/22 01:19 Microcytosis Not Reportable 05/21/22 01:19 Macrocytosis Not Reportable 05/21/22 01:19 Spherocytes Not Reportable 05/21/22 01:19 Pappenheimer Bodies Not Reportable 05/21/22 01:19 Sickle Cells Not Reportable 05/21/22 01:19 Target Cells Not Reportable 05/21/22 01:19 Tear Drop Cells Not Reportable 05/21/22 01:19 Ovalocytes Not Reportable 05/21/22 01:19 Helmet Cells Not Reportable 05/21/22 01:19 Goldstein-[place] Bodies Not Reportable 05/21/22 01:19 [place] Rings Not Reportable 05/21/22 01:19 [place] Cells Not Reportable 05/21/22 01:19 Bite Cells Not Reportable 05/21/22 01:19 Crenated Cell Not Reportable 05/21/22 01:19 Elliptocytes Not Reportable 05/21/22 01:19 Acanthocytes (Spur) Not Reportable 05/21/22 01:19 Rouleaux Not Reportable 05/21/22 01:19 Hemoglobin C Crystals Not Reportable 05/21/22 01:19 Schistocytes Not Reportable 05/21/22 01:19 Malaria parasites Not Reportable 05/21/22 01:19 Lexa Bodies Not Reportable 05/21/22 01:19 Hem Pathologist Commnt No 05/21/22 01:19 PT 14.6 Sec. (12.2-14.9) 05/21/22 01:19 INR 1.00 (0.87-1.13) 05/21/22 01:19 VBG pH 7.383 (7.320-7.420) 05/21/22 01:19 Sodium 139 mmol/L (137-145) 05/22/22 05:30 Potassium 3.7 mmol/L (3.6-5.0) 05/22/22 05:30 Chloride 105.6 mmol/L (98-107) 05/22/22 05:30 Carbon Dioxide 22 mmol/L (22-30) 05/22/22 05:30 Anion Gap 15 mmol/L 05/22/22 05:30 BUN 13 mg/dL (7-17) 05/22/22 05:30 Creatinine 0.9 mg/dL (0.6-1.2) 05/22/22 05:30 Estimated GFR > 60 ml/min 05/22/22 05:30 BUN/Creatinine Ratio 14 % 05/22/22 05:30 Glucose 104 mg/dL (65-100) H 05/22/22 05:30 Lactic Acid 0.90 mmol/L (0.7-2.0) 05/21/22 05:43 Calcium 8.1 mg/dL (8.4-10.2) L 05/22/22 05:30 Total Bilirubin 0.20 mg/dL (0.1-1.2) 05/22/22 05:30 AST 13 units/L (5-40) 05/22/22 05:30 ALT 23 units/L (7-56) 05/22/22 05:30 Alkaline Phosphatase 162 units/L (35-129) H 05/22/22 05:30 Total Protein 5.9 g/dL (6.3-8.2) L 05/22/22 05:30 Albumin 3.0 g/dL (3.9-5) L 05/22/22 05:30 Albumin/Globulin Ratio 1.0 % 05/22/22 05:30 Microbiology: Microbiology 05/21/22 02:01 Peripheral/Venous Blood Culture - Preliminary NO GROWTH AFTER 24 HOURS 05/21/22 01:19 Peripheral/Venous Blood Culture - Preliminary NO GROWTH AFTER 24 HOURS [place]/IV: Voiding Method Toilet Active Medications - Current Medications Current Medications: Generic Name Dose Route Start Last Admin Trade Name Freq PRN Reason Stop Dose Admin Acetaminophen 650 mg 05/21/22 14:23 05/21/22 23:04 Acetaminophen 325 Mg Tab PO 650 mg Q4H PRN Administration Pain MILD(1-3)/Fever >100.5/MENDOZA Famotidine 20 mg 05/21/22 16:00 05/21/22 23:04 Famotidine 20 Mg Tab PO 20 mg BID LUIS Administration Hydromorphone HCl 0.5 mg 05/21/22 14:23 Hydromorphone 0.5 Mg/0.5 Ml Inj IV Q3H PRN Pain , Severe (7-10) Sodium Chloride 1,000 mls @ 100 mls/hr 05/21/22 14:30 05/22/22 02:38 Nacl 0.9% 1000 Ml IV 100 mls/hr DIRECT LUIS Administration Ceftriaxone Sodium 2 gm in 100 mls @ 200 mls/hr 05/21/22 16:00 05/21/22 19:00 Rocephin/Ns 2 Gm/100 Ml IV 200 mls/hr Q24H LUIS Administration Protocol Morphine Sulfate 2 mg 05/21/22 05:04 Morphine 2 Mg/1 Ml Inj IV Q4H PRN Pain, Moderate (4-6) Ondansetron HCl 4 mg 05/21/22 14:23 Ondansetron 4 Mg/2 Ml Inj IV Q8H PRN Nausea And Vomiting Oxycodone/Acetaminophen 1 tab 05/21/22 14:23 05/21/22 18:58 Oxycodone /Acetaminophen 5-325mg Tab PO 1 tab Q6H PRN Administration Pain, Moderate (4-6) Sodium Chloride 10 ml 05/21/22 22:00 05/21/22 23:04 Sodium Chloride 0.9% 10 Ml Flush Syringe IV 10 ml BID LUIS Administration Sodium Chloride 10 ml 05/21/22 14:23 Sodium Chloride 0.9% 10 Ml Flush Syringe IV PRN PRN LINE FLUSH
--- NOTE | 2022-05-22 08:37 | Event Note ---
Date: 05/22/22 spoke with pt & nurse CTAP 3cm left UPJ STONE WITH PAIN NEEDS CYSTO STENT PT DID NOT EAT TODAY
[2022-05-22] MEDS: FAMOTIDINE 20 MG TAB PO SCH ×2 (09:42→21:46)
--- NOTE | 2022-05-22 12:29 | Consultation ---
History of Present Illness - Reason for Consult Consult date: 05/22/22 - History of Present Illness new to our service 51 yo F who came in with family member () with bilateral flank pain worsen on the left that started last Tuesday about 7 days ago and progressively getting worse. Pt has been seen in other 2 ER with imaging including CT abd/pelvis---+ stones. She was suppose to follow up with Urologist but has not. CTAP --2.9cm left UPJ STONE, SMALL BILAT RENAL STONES ABD SOFT A/P 2.9cm left UPJ STONE,WITH PAIN NEEDS CYSTO STENT OUTPT [facility] Medications and Allergies Allergies Allergy/AdvReac Type Severity Reaction Status Date / Time No Known Allergies Allergy Verified 05/21/22 02:17 Home Medications Medication Instructions Recorded Confirmed Last Taken Type Azithromycin [Zithromax TAB] 250 mg PO QDAY #4 tablet 01/05/17 Unknown Rx Naproxen [Naprosyn TAB] 500 mg PO BID PRN #30 tablet 01/05/17 Unknown Rx guaiFENesin DM [Robitussin Dm] 10 ml PO Q6HR PRN #1 bottle 01/05/17 Unknown Rx HYDROcodone/ACETAMINOPHEN [[place] 1 each PO Q6H PRN #7 tablet 07/15/17 Unknown Rx 5-325 Tablet] cefUROXime [Ceftin] 250 mg PO BID #20 tablet 07/15/17 Unknown Rx Ibuprofen [Motrin] 600 mg PO Q8H PRN #30 tablet 03/15/18 Unknown Rx levoFLOXacin [Levaquin] 750 mg PO QDAY #4 tablet 03/15/18 Unknown Rx Active Meds: Active Medications Acetaminophen (Acetaminophen 325 Mg Tab) 650 mg PO Q4H PRN PRN Reason: Pain MILD(1-3)/Fever >100.5/MENDOZA Last Admin: 05/21/22 23:04 Dose: 650 mg Famotidine (Famotidine 20 Mg Tab) 20 mg PO BID LUIS Last Admin: 05/22/22 09:42 Dose: Not Given Hydromorphone HCl (Hydromorphone 0.5 Mg/0.5 Ml Inj) 0.5 mg IV Q3H PRN PRN Reason: Pain , Severe (7-10) Sodium Chloride (Nacl 0.9% 1000 Ml) 1,000 mls @ 100 mls/hr IV DIRECT LUIS Last Admin: 05/22/22 02:38 Dose: 100 mls/hr Ceftriaxone Sodium (Rocephin/Ns 2 Gm/100 Ml) 2 gm in 100 mls @ 200 mls/hr IV Q24H [facility]; Protocol Last Admin: 05/21/22 19:00 Dose: 200 mls/hr Morphine Sulfate (Morphine 2 Mg/1 Ml Inj) 2 mg IV Q4H PRN PRN Reason: Pain, Moderate (4-6) Ondansetron HCl (Ondansetron 4 Mg/2 Ml Inj) 4 mg IV Q8H PRN PRN Reason: Nausea And Vomiting Oxycodone/Acetaminophen (Oxycodone /Acetaminophen 5-325mg Tab) 1 tab PO Q6H PRN PRN Reason: Pain, Moderate (4-6) Last Admin: 05/21/22 18:58 Dose: 1 tab Sodium Chloride (Sodium Chloride 0.9% 10 Ml Flush Syringe) 10 ml IV BID [facility] Last Admin: 05/22/22 09:42 Dose: Not Given Sodium Chloride (Sodium Chloride 0.9% 10 Ml Flush Syringe) 10 ml IV PRN PRN PRN Reason: LINE FLUSH Exam - Constitutional Vitals: Temp Pulse Resp BP Pulse Ox 99.8 F H 121 H 16 138/56 98 05/21/22 23:58 05/21/22 23:58 05/21/22 23:58 05/22/22 03:20 05/22/22 08:17 Results - Labs CBC & Chem 7: 05/22/22 05:30 05/22/22 05:30 Labs: Abnormal lab results 05/22/22 05/22/22 Range/Units 05:30 05:30 WBC 13.0 H (4.5-11.0) K/mm3 Hgb 9.8 L (10.1-14.3) gm/dl MCH 26 L (28-32) pg Lymph % (Auto) 12.7 L (13.4-35.0) % Seg Neutrophils % 79.6 H (40.0-70.0) % Seg Neutrophils # 10.3 H (1.8-7.7) K/mm3 Glucose 104 H (65-100) mg/dL Calcium 8.1 L (8.4-10.2) mg/dL Alkaline Phosphatase 162 H (35-129) units/L Total Protein 5.9 L (6.3-8.2) g/dL Albumin 3.0 L (3.9-5) g/dL
[2022-05-22] MEDS ORDERED: LIDOCAINE 2% UROJECT 10 ML JELLY ONE (13:03)
--- NOTE | 2022-05-22 13:07 | Anesthesia Consultation ---
Anesthesia Consult and Med Hx Date of service: 05/22/22 - Airway Anesthetic Teeth Evaluation: Poor (Multiple missing teeth) ROM Head & Neck: Adequate Mental/Hyoid Distance: Adequate Mallampati Class: Class II Intubation Access Assessment: Probably Good - Pulmonary Exam CTA: Yes - Pre-Operative Health Status ASA Pre-Surgery Classification: ASA2 Proposed Anesthetic Plan: General - Pulmonary Hx Smoking: No Hx Asthma: No Hx Respiratory Symptoms: No Hx Sleep Apnea: No - Cardiovascular System Hx Hypertension: No - Central Nervous System Hx Neuromuscular Disorder: No Hx Seizures: No Hx Psychiatric Problems: No - Endocrine Hx Renal Disease: Yes (Pyelonephritis, Logan. renal calculi, hydronephrosis) Hx Liver Disease: No Hx Insulin Dependent Diabetes: No Hx Non-Insulin Dependent Diabetes: No - Other Systems Hx Alcohol Use: No Hx Cancer: No Hx Obesity: No - Additional Comments Anesthesia Medical History Comments: Nenied previous anesthesia complications
--- NOTE | 2022-05-22 13:08 | Anesthesia Day of Surgery ---
Anesthesia Day of Surgery - Day of Surgery Patient Examined: Yes Patient H&P Reviewed: Yes Patient is NPO: Yes Beta Blockers: No Cardiac Clearance: No Pulmonary Clearance: No
[2022-05-22] MEDS ORDERED: propofoL 200 MG/20 ML VIAL IV ONE (13:12)
[2022-05-22] MEDS ORDERED: fentaNYL 100 MCG/2 ML INJ ONE (13:12)
[2022-05-22] MEDS ORDERED: LIDOCAINE MPF (2%) 20 MG/1 ML VIAL 5 ML ONE (13:12)
[2022-05-22] MEDS ORDERED: ONDANSETRON 4 MG/2 ML INJ ONE (13:12)
[2022-05-22] MEDS ORDERED: IOHEXOL 300 MG/ML 50ML IV ONE (13:35)
[2022-05-22] MEDS ORDERED: WATER FOR IRRIG STERILE 2000 ML IR ONE (13:36)
[2022-05-22] MEDS ORDERED: LACTATED RINGERS 1,000 ML ONE (13:45)
--- NOTE | 2022-05-22 13:47 | Short Stay Summary ---
Short Stay Documentation Date of service: 05/22/22 - History H&P: obtained from office - Allergies and Medications Current Medications: Allergies No Known Allergies Allergy (Verified 05/21/22 02:17) Home Medications Medication Instructions Recorded Confirmed Last Taken Type Azithromycin [Zithromax TAB] 250 mg PO QDAY #4 tablet 01/05/17 Unknown Rx Naproxen [Naprosyn TAB] 500 mg PO BID PRN #30 tablet 01/05/17 Unknown Rx guaiFENesin DM [Robitussin Dm] 10 ml PO Q6HR PRN #1 bottle 01/05/17 Unknown Rx HYDROcodone/ACETAMINOPHEN [[place] 1 each PO Q6H PRN #7 tablet 07/15/17 Unknown Rx 5-325 Tablet] cefUROXime [Ceftin] 250 mg PO BID #20 tablet 07/15/17 Unknown Rx Ibuprofen [Motrin] 600 mg PO Q8H PRN #30 tablet 03/15/18 Unknown Rx levoFLOXacin [Levaquin] 750 mg PO QDAY #4 tablet 03/15/18 Unknown Rx Active Medications Acetaminophen (Acetaminophen 325 Mg Tab) 650 mg PO Q4H PRN PRN Reason: Pain MILD(1-3)/Fever >100.5/MENDOZA Last Admin: 05/21/22 23:04 Dose: 650 mg Famotidine (Famotidine 20 Mg Tab) 20 mg PO BID [facility] Last Admin: 05/22/22 09:42 Dose: Not Given Hydromorphone HCl (Hydromorphone 0.5 Mg/0.5 Ml Inj) 0.5 mg IV Q3H PRN PRN Reason: Pain , Severe (7-10) Sodium Chloride (Nacl 0.9% 1000 Ml) 1,000 mls @ 100 mls/hr IV DIRECT LUIS Last Admin: 05/22/22 02:38 Dose: 100 mls/hr Ceftriaxone Sodium (Rocephin/Ns 2 Gm/100 Ml) 2 gm in 100 mls @ 200 mls/hr IV Q 24H [facility]; Protocol Last Admin: 05/21/22 19:00 Dose: 200 mls/hr Morphine Sulfate (Morphine 2 Mg/1 Ml Inj) 2 mg IV Q4H PRN PRN Reason: Pain, Moderate (4-6) Ondansetron HCl (Ondansetron 4 Mg/2 Ml Inj) 4 mg IV Q8H PRN PRN Reason: Nausea And Vomiting Oxycodone/Acetaminophen (Oxycodone /Acetaminophen 5-325mg Tab) 1 tab PO Q6H PRN PRN Reason: Pain, Moderate (4-6) Last Admin: 05/21/22 18:58 Dose: 1 tab Sodium Chloride (Sodium Chloride 0.9% 10 Ml Flush Syringe) 10 ml IV BID LUIS Last Admin: 05/22/22 09:42 Dose: Not Given Sodium Chloride (Sodium Chloride 0.9% 10 Ml Flush Syringe) 10 ml IV PRN PRN PRN Reason: LINE FLUSH - Physical exam Extremities: no ischemia, pulses intact, pulses symmetrical, No edema - Brief post op/procedure progress note Date of procedure: 05/22/22 Pre-op diagnosis: left 3cm yreteral stone Post-op diagnosis: same Procedure: cysto rpg, stent external string left Anesthesia: GETA Surgeon: HECTOR FOSS Condition: stable - Hospital course Hospital course: left stent -----will need outpt LEFT ESWL HOME WITH ABX WHEN STABLE FROM PRIMARY SERVICE - Disposition Condition at discharge: Stable Short Stay Discharge Plan Follow up with: PRIMARY CARE, [Primary Care Provider] - 3-5 Days
--- NOTE | 2022-05-22 14:39 | Post Anesthesia Evaluation ---
- Post Anesthesia Evaluation Patient Participated: Yes Airway Patent: Yes Stable Respiratory Function: Yes Nausea/Vomiting: No Temp > 96.8F: Yes Pain Manageable: Yes Adequeate Hydration: Yes Anesthesia Complications: No Block Receding Appropriately: Not Applicable Patient on Ventilator: No
--- NOTE | 2022-05-22 15:14 | XRay Report ---
INTRAOPERATIVE FLUOROSCOPY: ABDOMEN INDICATION: Cysto bilateral RPGs with Lt. side stent placement.. TECHNIQUE: Intraoperative spot images were obtained during the procedure. FINDINGS: A large left UPJ stone is again seen with associated hydroureteronephrosis. No significant abnormalit y of the right ureter or renal collecting system is seen. There is expected positioning of a left ure teral stent following stone removal. Please see the report for the procedure for further details. Fluoroscopy Time: 100 seconds. Fluoroscopy Images: 12. Signer Name: Jaswinder Lepe MD Signed: 05/22/2022 3:10 PM Workstation Name: [id number]
[2022-05-22] MEDS: cefTRIAXone/NS 2 GM/100 ML 2 GM/100 ML BAG IV SCH (15:40)
--- NOTE | 2022-05-22 15:56 | Operative Report ---
DATE OF SURGERY: 05/22/2022 PREOPERATIVE DIAGNOSIS: Left proximal ureteral stone. POSTOPERATIVE DIAGNOSIS: Left proximal ureteral stone. PROCEDURE PERFORMED: Cystoscopy, bilateral retrograde pyelograms, left double-J stent placement (6-Bur[place] 22 cm with an external string). SURGEON: Michael Lugo MD ANESTHESIA: General. ESTIMATED BLOOD LOSS: Minimal. FLUIDS: Crystalloid. COMPLICATIONS: No complications. INDICATIONS: This patient is a 51-year-old female who presented to the emergency room with left flank pain and fever. CT revealed a 3 cm left proximal UPJ stone. She was admitted for pain control, presents now for surgical intervention. Discussion with the patient and her as well as written information was given. DESCRIPTION OF PROCEDURE: The patient was taken to the operative suite, placed in the supine position. After adequate general anesthesia, placed in the dorsal lithotomy position, prepped and draped in a sterile fashion. Pancystourethroscopy was performed with a 22-[place] Storz cystoscope, no acute bladder pathology. The patient does have some pelvic prolapse. Cystoscopy, no tumors or stones were noted in the bladder. Bilateral retrograde pyelograms were obtained with an 8-[place] catheter and 8 mL of contrast. No filling defects or obstruction on the right. Left side obvious stone. A 0.035 Glidewire was placed. Stone was manipulated into the kidney. A 6-[place] 22 cm double-J stent with external string was left indwelling. The patient tolerated the procedure well. She was extubated and taken to recovery room. She will need outpatient ESWL. TID: [id number] RECEIPT: [id number] [facility]
[2022-05-23] MEDS: SODIUM CHLORIDE 0.9% 1000 ML 1,000 ML IV SCH ×2 (02:00→15:52)
--- NOTE | 2022-05-23 07:37 | Post Operative Note ---
Date of procedure: 05/22/22 Pre-op diagnosis: 3cm stone Post-op diagnosis: same Procedure: CYSTO, RPG, LEFT STENT WITH EXTERNAL STRING Anesthesia: ADRINENE Surgeon: HECTOR FOSS Estimated blood loss: none Pathology: none Condition: stable Disposition: PACU (OK TO DC HOME FROM [facility]POINT-ABX & PAIN MED/ OUTPT ESWL IN SEVERAL WEEKS)
[2022-05-23] MEDS: FAMOTIDINE 20 MG TAB PO SCH ×2 (09:31→21:57)
--- NOTE | 2022-05-23 13:55 | Discharge Summary ---
Providers - Providers Date of Admission: 05/21/22 05:04 Date of discharge: 05/23/22 Attending physician: LILI LANDAVERDE 05/22/22 07:01 Consult to Physician [CONS] Routine Comment: Consulting Provider: HECTOR LUGO Physician Instructions: Reason For Exam: Left hydronephrosis Primary care physician: SEWER PIPE OFFBEARER Hospitalization Condition: Stable Pertinent studies: Chest x-ray CT abdomen and pelvis Procedures: Cystoscopy, bilateral retrograde pyelography, and left stent placement with external strings Hospital course: SIRS systemic inflammatory response syndrome; Due to pyelonephritis, empiric antibiotics follow cultures Acute pyelonephritis; Empiric antibiotics follow cultures Left renal calculus Urology following supportive care Left hydronephrosis Urology evaluated the patient s/p cystoscopy, retrograde pyelography, stent placement with external strings, follow-up per schedule s/p cystoscopy, retrograde pyelography, left stent placement with external string Hypokalemia; Replenished potassium levels corrected Moderate protein calorie malnutrition Moderate hypoalbuminemia albumin 3.0 Nutrition supplements and supportive care Today patient is comfortable no new complaints vital signs stable physical examination prior to discharge is unremarkable Patient is hemodynamically and clinically stable at discharge Disposition: 01 HOME / SELF CARE / HOMELESS Final Discharge Diagnosis (Prints w/discharge instructions): SIRS systemic inflammatory response syndrome. Acute pyelonephritis. Left renal calculus. Left hydronephrosis. s/p cystoscopy, retrograde pyelography, left stent placement with external string. Hypokalemia. Moderate malnutrition. Moderate hypoalbuminemia albumin 3.0 Time spent for discharge: 35 minutes Core Measure Documentation - Palliative Care Palliative Care/ Comfort Measures: Not Applicable - Core Measures Any of the following diagnoses?: none Exam - Constitutional Vitals: Temp Pulse Resp BP Pulse Ox 98.3 F 86 18 140/84 96 05/23/22 08:38 05/23/22 08:38 05/23/22 08:38 05/23/22 08:38 05/23/22 08:38 General appearance: Present: no acute distress, well-nourished - EENT Eyes: Present: PERRL, EOM intact - Neck Neck: Present: supple, normal ROM - Respiratory Respiratory effort: normal Respiratory: bilateral: diminished, negative: rales, rhonchi, wheezing - Cardiovascular Rhythm: regular Heart Sounds: Present: S1 & S2 - Extremities Extremities: no ischemia, No edema - Abdominal General gastrointestinal: Present: soft, non-tender, non-distended, normal bowel sounds - Integumentary Integumentary: Present: clear, warm - Musculoskeletal Musculoskeletal: strength equal bilaterally - Psychiatric Psychiatric: appropriate mood/affect, cooperative - Neurologic Neurologic: moves all extremities Plan Activity: advance as tolerated Diet: regular Additional Instructions: If you have worsening symptoms contact MD or go to the nearest emergency room as needed. Advised to follow post procedure instructions as given by the surgeon as well as the discharge nurse. Advised to see urologist Dr. Lugo per schedule/OUTPT ESWL IN SEVERAL WEEKS. Strongly advised to see your primary care physician in 1 week Follow up with: PRIMARY CARE, [Primary Care Provider] - 3-5 Days Prescriptions: Cefuroxime Axetil [Cefuroxime] 500 mg PO BID 7 Days #14 oxyCODONE /ACETAMINOPHEN [Percocet 5/325 mg] 1 tab PO Q6H PRN #20 tablet PRN Reason: Pain, Moderate (4-6)
[2022-05-23] MEDS: cefTRIAXone/NS 2 GM/100 ML 2 GM/100 ML BAG IV SCH (15:51)
--- NOTE | 2022-05-23 20:47 | Event Note ---
Date: 05/23/22 Patient was initially discharged however In the last minute it was reported that patient's blood cultures are positive and discharge is held Will continue current management closely monitor and adjust as needed Plan of care reviewed with the patient and her nurse
[2022-05-24] MEDS: SODIUM CHLORIDE 0.9% 1000 ML 1,000 ML IV SCH ×2 (06:24→17:36)
[2022-05-24] MEDS: FAMOTIDINE 20 MG TAB PO SCH ×2 (11:00→22:42)
[2022-05-24] MEDS: ACETAMINOPHEN 325 MG TAB PO PRN (11:01)
--- NOTE | 2022-05-24 15:53 | Progress Note ---
Assessment and Plan Assessment and plan: SIRS systemic inflammatory response syndrome; Due to pyelonephritis, empiric antibiotics follow cultures Acute pyelonephritis; Empiric antibiotics follow cultures Left renal calculus Urology following supportive care Left hydronephrosis Urology evaluated the patient s/p cystoscopy, retrograde pyelography, stent placement with external strings, follow-up per schedule s/p cystoscopy, retrograde pyelography, left stent placement with external string Hypokalemia; Replenished potassium levels corrected Moderate protein calorie malnutrition Moderate hypoalbuminemia albumin 3.0 Nutrition supplements and supportive care Today patient is comfortable no new complaints vital signs stable physical exa mination prior to discharge is unremarkable Patient is hemodynamically and clinically stable at discharge Closely monitor the patient and adjust the management as needed Disposition; follow pending blood cultures 1 out of 2 gram variable rods Follow repeat cultures, consult ID if needed Discharge when patient is stable History Interval history: I have seen and examined the patient at the bedside Patient's chart and medications reviewed Patient with hydronephrosis status post stent placement UTI, urine cultures pending Patient feels better no new complaints anxious to go home Vital signs noted Hospitalist Physical - Constitutional Vitals: Temp Pulse Resp BP Pulse Ox 98.5 F 71 18 135/78 98 05/24/22 07:53 05/24/22 10:00 05/24/22 09:00 05/24/22 07:53 05/24/22 09:00 General appearance: Present: no acute distress, well-nourished - EENT Eyes: Present: PERRL, EOM intact - Neck Neck: Present: supple, normal ROM - Respiratory Respiratory effort: normal Respiratory: bilateral: diminished, negative: rales, rhonchi, wheezing - Cardiovascular Rhythm: regular Heart Sounds: Present: S1 & S2 - Extremities Extremities: no ischemia, No edema - Abdominal General gastrointestinal: soft, non-tender, non-distended, normal bowel sounds - Integumentary Integumentary: Present: clear, warm - Psychiatric Psychiatric: appropriate mood/affect, cooperative - Neurologic Neurologic: moves all extremities Results - Labs CBC & Chem 7: 05/22/22 05:30 05/22/22 05:30 Labs: Laboratory Last Values WBC 13.0 K/mm3 (4.5-11.0) H 05/22/22 05:30 RBC 3.76 M/mm3 (3.65-5.03) 05/22/22 05:30 Hgb 9.8 gm/dl (10.1-14.3) L 05/22/22 05:30 Hct 30.8 % (30.3-42.9) 05/22/22 05:30 MCV 82 fl (79-97) 05/22/22 05:30 MCH 26 pg (28-32) L 05/22/22 05:30 MCHC 32 % (30-34) 05/22/22 05:30 RDW 13.9 % (13.2-15.2) 05/22/22 05:30 Plt Count 242 K/mm3 (140-440) 05/22/22 05:30 Lymph % (Auto) 12.7 % (13.4-35.0) L 05/22/22 05:30 [place] % (Auto) 6.3 % (0.0-7.3) 05/22/22 05:30 Eos % (Auto) 1.0 % (0.0-4.3) 05/22/22 05:30 Baso % (Auto) 0.4 % (0.0-1.8) 05/22/22 05:30 Lymph # (Auto) 1.6 K/mm3 (1.2-5.4) 05/22/22 05:30 [place] # (Auto) 0.8 K/mm3 (0.0-0.8) 05/22/22 05:30 Eos # (Auto) 0.1 K/mm3 (0.0-0.4) 05/22/22 05:30 Baso # (Auto) 0.1 K/mm3 (0.0-0.1) 05/22/22 05:30 Add Manual Diff Complete 05/21/22 01:19 Total Counted 100 05/21/22 01:19 Seg Neutrophils % 79.6 % (40.0-70.0) H 05/22/22 05:30 Seg Neuts % (Manual) 89.0 % (40.0-70.0) H 05/21/22 01:19 Band Neutrophils % 0 % 05/21/22 01:19 Lymphocytes % (Manual) 8.0 % (13.4-35.0) L 05/21/22 01:19 Reactive Lymphs % (Man) 0 % 05/21/22 01:19 Monocytes % (Manual) 3.0 % (0.0-7.3) 05/21/22 01:19 Eosinophils % (Manual) 0 % (0.0-4.3) 05/21/22 01:19 Basophils % (Manual) 0 % (0.0-1.8) 05/21/22 01:19 Metamyelocytes % 0 % 05/21/22 01:19 Myelocytes % 0 % 05/21/22 01:19 Promyelocytes % 0 % 05/21/22 01:19 Blast Cells % 0 % 05/21/22 01:19 Nucleated RBC % Not Reportable 05/21/22 01:19 Seg Neutrophils # 10.3 K/mm3 (1.8-7.7) H 05/22/22 05:30 Seg Neutrophils # Man 8.5 K/mm3 (1.8-7.7) H 05/21/22 01:19 Band Neutrophils # 0.0 K/mm3 05/21/22 01:19 Lymphocytes # (Manual) 0.8 K/mm3 (1.2-5.4) L 05/21/22 01:19 Abs React Lymphs (Man) 0.0 K/mm3 05/21/22 01:19 Monocytes # (Manual) 0.3 K/mm3 (0.0-0.8) 05/21/22 01:19 Eosinophils # (Manual) 0.0 K/mm3 (0.0-0.4) 05/21/22 01:19 Basophils # (Manual) 0.0 K/mm3 (0.0-0.1) 05/21/22 01:19 Metamyelocytes # 0.0 K/mm3 05/21/22 01:19 Myelocytes # 0.0 K/mm3 05/21/22 01:19 Promyelocytes # 0.0 K/mm3 05/21/22 01:19 Blast Cells # 0.0 K/mm3 05/21/22 01:19 WBC Morphology Not Reportable 05/21/22 01:19 Hypersegmented Neuts Not Reportable 05/21/22 01:19 Hyposegmented Neuts Not Reportable 05/21/22 01:19 Hypogranular Neuts Not Reportable 05/21/22 01:19 Smudge Cells Not Reportable 05/21/22 01:19 Toxic Granulation Not Reportable 05/21/22 01:19 Toxic Vacuolation Not Reportable 05/21/22 01:19 Dohle Bodies Not Reportable 05/21/22 01:19 Pelger-Huet Anomaly Not Reportable 05/21/22 01:19 Radha Rods Not Reportable 05/21/22 01:19 Platelet Estimate Consistent w auto 05/21/22 01:19 Clumped Platelets Not Reportable 05/21/22 01:19 Plt Clumps, EDTA Not Reportable 05/21/22 01:19 Large Platelets Not Reportable 05/21/22 01:19 Giant Platelets Not Reportable 05/21/22 01:19 Platelet Satelliting Not Reportable 05/21/22 01:19 Plt Morphology Comment Not Reportable 05/21/22 01:19 RBC Morphology Not Reportable 05/21/22 01:19 Dimorphic RBCs Not Reportable 05/21/22 01:19 Polychromasia Not Reportable 05/21/22 01:19 Hypochromasia Few 05/21/22 01:19 Poikilocytosis Not Reportable 05/21/22 01:19 Anisocytosis Not Reportable 05/21/22 01:19 Microcytosis Not Reportable 05/21/22 01:19 Macrocytosis Not Reportable 05/21/22 01:19 Spherocytes Not Reportable 05/21/22 01:19 Pappenheimer Bodies Not Reportable 05/21/22 01:19 Sickle Cells Not Reportable 05/21/22 01:19 Target Cells Not Reportable 05/21/22 01:19 Tear Drop Cells Not Reportable 05/21/22 01:19 Ovalocytes Not Reportable 05/21/22 01:19 Helmet Cells Not Reportable 05/21/22 01:19 [place] Bodies Not Reportable 05/21/22 01:19 [place] Rings Not Reportable 05/21/22 01:19 Moore Cells Not Reportable 05/21/22 01:19 Bite Cells Not Reportable 05/21/22 01:19 Crenated Cell Not Reportable 05/21/22 01:19 Elliptocytes Not Reportable 05/21/22 01:19 Acanthocytes (Spur) Not Reportable 05/21/22 01:19 Rouleaux Not Reportable 05/21/22 01:19 Hemoglobin C Crystals Not Reportable 05/21/22 01:19 Schistocytes Not Reportable 05/21/22 01:19 Malaria parasites Not Reportable 05/21/22 01:19 Lexa Bodies Not Reportable 05/21/22 01:19 Hem Pathologist Commnt No 05/21/22 01:19 PT 14.6 Sec. (12.2-14.9) 05/21/22 01:19 INR 1.00 (0.87-1.13) 05/21/22 01:19 VBG pH 7.383 (7.320-7.420) 05/21/22 01:19 Sodium 139 mmol/L (137-145) 05/22/22 05:30 Potassium 3.7 mmol/L (3.6-5.0) 05/22/22 05:30 Chloride 105.6 mmol/L (98-107) 05/22/22 05:30 Carbon Dioxide 22 mmol/L (22-30) 05/22/22 05:30 Anion Gap 15 mmol/L 05/22/22 05:30 BUN 13 mg/dL (7-17) 05/22/22 05:30 Creatinine 0.9 mg/dL (0.6-1.2) 05/22/22 05:30 Estimated GFR > 60 ml/min 05/22/22 05:30 BUN/Creatinine Ratio 14 % 05/22/22 05:30 Glucose 104 mg/dL (65-100) H 05/22/22 05:30 Lactic Acid 0.90 mmol/L (0.7-2.0) 05/21/22 05:43 Calcium 8.1 mg/dL (8.4-10.2) L 05/22/22 05:30 Total Bilirubin 0.20 mg/dL (0.1-1.2) 05/22/22 05:30 AST 13 units/L (5-40) 05/22/22 05:30 ALT 23 units/L (7-56) 05/22/22 05:30 Alkaline Phosphatase 162 units/L (35-129) H 05/22/22 05:30 Total Protein 5.9 g/dL (6.3-8.2) L 05/22/22 05:30 Albumin 3.0 g/dL (3.9-5) L 05/22/22 05:30 Albumin/Globulin Ratio 1.0 % 05/22/22 05:30 Microbiology: Microbiology 05/21/22 01:19 Peripheral/Venous Blood Culture - Preliminary NO GROWTH AFTER 72 HOURS 05/21/22 02:01 Peripheral/Venous Blood Culture - Preliminary Beckwith/IV: Voiding Method Toilet Active Medications - Current Medications Current Medications: Generic Name Dose Route Start Last Admin Trade Name Freq PRN Reason Stop Dose Admin Acetaminophen 650 mg 05/21/22 14:23 05/24/22 11:01 Acetaminophen 325 Mg Tab PO 650 mg Q4H PRN Administration Pain MILD(1-3)/Fever >100.5/MENDOZA Famotidine 20 mg 05/21/22 16:00 05/24/22 11:00 Famotidine 20 Mg Tab PO 20 mg BID LUIS Administration Hydromorphone HCl 0.5 mg 05/21/22 14:23 Hydromorphone 0.5 Mg/0.5 Ml Inj IV Q3H PRN Pain , Severe (7-10) Sodium Chloride 1,000 mls @ 100 mls/hr 05/21/22 14:30 05/24/22 06:24 Nacl 0.9% 1000 Ml IV 100 mls/hr DIRECT LUIS Administration Ceftriaxone Sodium 2 gm in 100 mls @ 200 mls/hr 05/21/22 16:00 05/23/22 15:51 Rocephin/Ns 2 Gm/100 Ml IV 05/27/22 16:29 200 mls/hr Q24H LUIS Administration Protocol Morphine Sulfate 2 mg 05/21/22 05:04 05/22/22 23:03 Morphine 2 Mg/1 Ml Inj IV 2 mg Q4H PRN Administration Pain, Moderate (4-6) Ondansetron HCl 4 mg 05/21/22 14:23 Ondansetron 4 Mg/2 Ml Inj IV Q8H PRN Nausea And Vomiting Oxycodone/Acetaminophen 1 tab 05/21/22 14:23 05/21/22 18:58 Oxycodone /Acetaminophen 5-325mg Tab PO 1 tab Q6H PRN Administration Pain, Moderate (4-6) Sodium Chloride 10 ml 05/21/22 22:00 05/24/22 11:03 Sodium Chloride 0.9% 10 Ml Flush Syringe IV 10 ml BID LUIS Administration Sodium Chloride 10 ml 05/21/22 14:23 Sodium Chloride 0.9% 10 Ml Flush Syringe IV PRN PRN LINE FLUSH Nutrition/Malnutrition Assess - Dietary Evaluation Nutrition/Malnutrition Findings: Nutrition Notes Start: 05/23/22 16:22 Freq: Status: Active Protocol: Document 05/23/22 16:22 LELIA (Rec: 05/23/22 16:44 LELIA [email or web address]) Nutrition Notes 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 Current Diet Regular Diet (since D 05/22). Height 5 ft 5 in Weight 78.5 kg [place] Body Weight (kg) 56.81 BMI 28.8 Intake Prior to Admission Good Weight change and time frame Pt states having, unintentionally, loss body weight [facility]. Weight Status Overweight Subjective/Other Information RD consult for new onset diabetes education assessment. Pt advanced to PO, no reports available on Pt's PO intake of meals at the time, will assess at F/U. Pt is on Room Air, O2 saturation @ 98%, according to Physical Assessment History notes. Procedure on 05/22: Cystoscopy , Bilateral Retrograde Pyelogram (RPG), L-Stent placement w/external string, well tolerated, according to Operative Report notes. Pt is not a new onset diabetes case, not a candidate for nutrition education at the time. Percent of energy/protein needs met: Prescribed Regular Diet provides for energy/protein needs (2,289 Kcal/89 g) during LOS. Nutrition Intervention Follow-Up By: 05/27/22 Additional Comments Continue monitoring food tolerance, %PO intake of meals , and BM.
[2022-05-24] MEDS: cefTRIAXone/NS 2 GM/100 ML 2 GM/100 ML BAG IV SCH (17:29)
[2022-05-25] MEDS: FAMOTIDINE 20 MG TAB PO SCH (10:27)
--- NOTE | 2022-05-25 11:53 | Discharge Summary ---
Providers - Providers Date of Admission: 05/21/22 05:04 Date of discharge: 05/25/22 Attending physician: THIERRY ELLSWORTH 05/22/22 07:01 Consult to Physician [CONS] Routine Comment: Consulting Provider: HECTOR FOSS Physician Instructions: Reason For Exam: Left hydronephrosis Primary care physician: TACK PULLER MACHINE Hospitalization Reason for admission: Pyelonephritis Condition: Stable Hospital course: 51-year-old Pashto-speaking female presented through the emergency department with bilateral flank pain for 7 days prior to admission that progressively worsened. Patient also reported low-grade fever and dysuria. The patient was admitted with diagnosis of severe left hydronephrosis caused by 2.9 cm calculus in the proximal left ureter at the UPJ junction was noted decreased attenuation of the renal parenchyma in the left upper pole this most likely secondary to pyelonephritis. Also patient was noted to have right nephrolithiasis without obstruction. The patient was admitted with diagnosis of sepsis, present on admission secondary to pyelonephritis, left renal calculus, left hydronephrosis, right hydronephrosis, hypokalemia moderate protein calorie malnutrition. The patient received IV antibiotics and seen by urology in consultation. Urology evaluated the patient s/p cystoscopy, retrograde pyelography, stent placement with external strings, follow-up per schedule. Discharge was held yesterday secondary to questionable positive blood cultures. However blood culture resulted as Gram variable rods 1 of 2 bottles which is likely a contaminant. Patient remains afebrile and no leukocytosis and looks well. Therefore, patient will be discharged home and is to follow-up with urology as an outpatient. Dedicated discharge time 32 minutes Disposition: 01 HOME / SELF CARE / HOMELESS Final Discharge Diagnosis (Prints w/discharge instructions): Sepsis, pyelonephritis, left renal calculus, left hydronephrosis, right hydronephrosis, hypokalemia moderate protein calorie malnutrition. Core Measure Documentation - Palliative Care Palliative Care/ Comfort Measures: Not Applicable - Core Measures Any of the following diagnoses?: none Exam - Constitutional Vitals: Temp Pulse Resp BP Pulse Ox 98.8 F 80 18 163/98 93 05/25/22 09:18 05/25/22 09:18 05/25/22 09:18 05/25/22 09:18 05/25/22 09:18 General appearance: Present: no acute distress, well-nourished - EENT Eyes: Present: PERRL ENT: hearing intact, clear oral mucosa - Neck Neck: Present: supple, normal ROM - Respiratory Respiratory effort: normal Respiratory: bilateral: CTA - Cardiovascular Heart Sounds: Present: S1 & S2. Absent: rub, click - Extremities Extremities: pulses symmetrical, No edema Peripheral Pulses: within normal limits - Abdominal General gastrointestinal: Present: soft, non-tender, non-distended, normal bowel sounds Female genitourinary: Present: normal - Integumentary Integumentary: Present: clear, warm, dry - Musculoskeletal Musculoskeletal: gait normal, strength equal bilaterally - Psychiatric Psychiatric: appropriate mood/affect, intact judgment & insight - Neurologic Neurologic: CNII-XII intact, moves all extremities Plan Activity: no restrictions Weight Bearing Status: Weight Bear as Tolerated Diet: regular Follow up with: PRIMARY CARE,MD [Primary Care Provider] - 3-5 Days Prescriptions: Cefuroxime Axetil [Cefuroxime] 500 mg PO BID 7 Days #14 oxyCODONE /ACETAMINOPHEN [Percocet 5/325 mg] 1 tab PO Q6H PRN #20 tablet PRN Reason: Pain, Moderate (4-6)
[2022-05-25] MEDS: cefTRIAXone/NS 2 GM/100 ML 2 GM/100 ML BAG IV SCH (16:20)
[2022-05-25 17:01] VITALS: BP 154/83
== END 2022-05-25 18:00 | disposition home or self-care (01) | DRG 854 ==
LOC: ED 00:31 → 4A 05:04
PROVIDERS: ADMIT Hospitalist; ATTEND Hospitalist
PROC: 0T778DZ Dilation of Left Ureter with Intraluminal Device, Via Natural or Artificial Opening Endoscopic (ICD-10-PCS; principal; 2022-05-22)
PROC: BT141ZZ Fluoroscopy of Kidneys, Ureters and Bladder using Low Osmolar Contrast (ICD-10-PCS; 2022-05-22)
DX: A41.9 Sepsis, unspecified organism (principal); E44.0 Moderate protein-calorie malnutrition; N13.6 Pyonephrosis; N20.0 Calculus of kidney; Z68.28 Body mass index [BMI] 28.0-28.9, adult; E87.6 Hypokalemia
CPT/HCPCS: 36415; 71045; 74018; 74177; 80053; 82140; 82805; 85007; 85025; 85610; 87040; 93005; 96374; 99285; G0378; C1758; C1769; C2617; J0696; J1885; J2270; J2405; J2543; J2704; J3010; J3370; J7030; J7120; Q9967